=== PATIENT | female | born 1960 ===

== ENCOUNTER → 2018-10-02 | Outpatient (CLI) | payer MEDICAID | END | disposition home or self-care (01) | LOC: SUSANVILLE 08:00 | PROVIDERS: ATTEND Internal Medicine Cardiovascular Disease | DX: I25.10 Atherosclerotic heart disease of native coronary artery without angina pectoris (principal); E78.5 Hyperlipidemia, unspecified; F17.200 Nicotine dependence, unspecified, uncomplicated | CPT/HCPCS: 93306 ==